=== PATIENT | female | born 2000 | race Caucasian/White ===

== ENCOUNTER 2023-05-28 22:32 | Emergency (ER) | payer OTHER, SELFPAY ==
[2023-05-28 22:33] VITALS: BMI 20.7
[2023-05-28 22:43] VITALS: BP 133/88
[2023-05-28 23:00] LABS: % Eosinophils 1.7 % (0-6); % Immature Granulocytes 0.3 % (0-0.5); % Lymphocytes 37.1 % (20.5-51.1); % Monocytes 10.6 % (1.7-9.3); % Neutrophils 49.3 % (42.2-75.2); Absolute Basophils 0.1 10^3/uL (0-0.2); Absolute Eosinophils 0.1 10^3/uL (0-0.7); Absolute Lymphocytes 2.2 10^3/uL (1.2-3.4); Absolute Monocytes 0.6 10^3/uL (0.1-0.6); Absolute Neutrophils 2.9 10^3/uL (1.4-6.5); Hematocrit 37.5 % (37.0-47.0); Hemoglobin 13.2 g/dL (12.0-16.0); Mean Corp Hgb Conc. 35.2 g/dL (33.0-37.0); Mean Corpuscular Hgb 31.7 pg (27.0-31.0); Mean Corpuscular Volume 89.9 fL (81.0-99.0); Mean Platelet Volume 8.8 fL (7.4-10.4); Nucleated Red Blood Cells % 0 %; Platelet Count 232 10^3/uL (130-400); Red Blood Cell Count 4.17 10^6/uL (4.20-5.40); Red Cell Dist. Width 11.8 % (11.5-14.5)
[2023-05-28 23:12] LABS: ALT (SGPT) 13 U/L (0-35); AST (SGOT) 22 U/L (14-36); Albumin 4.4 g/dl (3.5-5.0); Alkaline Phosphatase 75 U/L (38-126); Blood Urea Nitrogen 16 mg/dl (7-17); Calcium 9.5 mg/dl (8.4-10.2); Carbon Dioxide 27 mmol/L (22-30); Chloride 104 mmol/L (98-107); Glucose 106 mg/dl (70-99); Potassium 3.9 mmol/L (3.5-5.1); Sodium 136 mmol/L (135-145); Total Bilirubin 0.4 mg/dl (0.2-1.3); Total Protein 7.6 g/dl (6.3-8.2); eGFR > 60.00
[2023-05-29 01:41] VITALS: BP 109/76
[2023-05-29 02:00] VITALS: BP 104/71
[2023-05-29 02:55] LABS: Acetaminophen < 10 ug/ml (10-30); Salicylate < 1.0 mg/dl (2.0-20.0)
[2023-05-29 03:06] LABS: Alcohol None Detected
[2023-05-29 03:15] LABS: HCG, Serum Qualitative Screen Negative
--- NOTE | 2023-05-29 03:41 | ED.GENMED ---
History of Present Illness
General
Chief Complaint: Overdose Unintentional
Source: patient
Exam Limitations: none
Time Seen by Provider: 05/29/23 02:09
Nursing documentation reviewed up to this point in time: agreed with
Travel History
Have you had any contact with someone who has COVID-19?: No
Do you have any symptoms of coronavirus? Fever > 100 degrees, chills, cough, shortness of breath, sore throat, loss of taste or smell, muscle aches, or headache?: No
History of Present Illness
History of Present Illness:
This is a 23-year-old woman who has history of anxiety, follows with a counselor weekly but has not required medication. She denies history of depression, no previous treatment for depression.
Tonight she admits to swallowing 2 small handfuls of ibuprofen in an attempt to then quickly regurgitate the pills. Unfortunately she was unable to vomit up the pills and became concerned that she potentially overdosed on ibuprofen. She continues
to adamantly deny wanting to hurt herself, denies suicide attempt. She does admit that, now in retrospect, her actions were quite foolish and she has no history of similar episodes in the past.
She remains asymptomatic, denies abdominal pain, denies nausea.
She does admit to feeling somewhat [place] but [place] recently [place] to this area, she currently has a great job which she enjoys.
She denies alcohol nor drug use.
She denies risk of .
She lives at home alone with her dog but has brought with her a friend who has been supportive and patient states she has been happily reacquainted with old friends more recently.
She denies significant stress and continues to deny feelings of depression, denies suicidal thoughts or plan.
Past History
Past History
ED Past Medical History: Psychiatric (Anxiety)
ED Past Surgical History: None
Social History
Tobacco: Non-smoker
Alcohol: Occasional
Drug: None
Personal: Single
Living: alone
Employment: Employed
Family History
Family History: Other (Noncontributory)
Phy Exam
Physical Exam
Physical Exam:
GENERAL: 23-year-old female appears her stated age, bright and alert, easily communicative, appears in no acute distress. Male friend is accompanying.
EYE: pupils equal and reactive. anicteric
NECK: Supple, nontender, no meningismus, no significant adenopathy.
ENT: posterior pharynx is clear, oral mucosa is moist. No rhinorrhea.
CARDIAC: Regular rate and rhythm. no murmur.
LUNGS: Clear breath sounds bilaterally, no acute respiratory distress, no wheezes/rales/rhonchi
ABDOMEN: Soft, nondistended, without focal tenderness, no r/g, normoactive BS.
NEUROLOGICAL: Alert and oriented x3, no focal neuro deficits. Gait is tuttle and steady.
SKIN: Warm and dry, normal color, skin intact. No rash.
MUSCULOSKELETAL: No C/C/E. peripheral pulses are full and equal b/l. No palpable tenderness.
PSYCH: Normal and appropriate interaction. Admits to impulsive act tonight but continues to adamantly denies suicidal intent, denies intent to harm. Speech is fluent, normal thought processes. She is goal oriented. Fair insight. Momentary poor
judgment.
Course
Orders/Labs/Results
Orders:
Orders
05/28/23 22:53
Acetaminophen Urgent
Alcohol Urgent
CMP [Comprehensive Metabolic Panel] Urgent
Complete Blood Count/With Diff Urgent
HCG, Serum Qualitative Screen Urgent
Salicylate Urgent
05/29/23 02:04
Add On- LAB Urgent
Tests Added?: acetaminophen, salycilate, ETOH, HCG qual serum
05/29/23 02:05
Crisis Consult Urgent
Reason for Consult: intentional OD ibuprofen
05/29/23 03:25
Urine Drug Abuse Screen Urgent
Date Specimen was Collected: 05/29/23
Time Specimen was Collected: 03:22
Abnormal Lab Results
05/28/23
22:53
RBC 4.17 L 10^6/uL
(4.20-5.40)
MCH 31.7 H pg
(27.0-31.0)
Monocytes % 10.6 H %
(1.7-9.3)
Glucose 106 H mg/dl
(70-99)
Salicylates < 1.0 L mg/dl
(2.0-20.0)
Acetaminophen < 10 L ug/ml
(10-30)
05/28/23 22:53
05/28/23 22:53
Vital Signs
Initial and Last Documented VS:
Initial Vital Signs
Temp Pulse Resp BP Pulse Ox
98.0 F 94 18 133/88 97
05/28/23 22:43 05/28/23 22:43 05/28/23 22:43 05/28/23 22:43 05/28/23 22:43
Last Documented Vital Signs
Temp Pulse Resp BP Pulse Ox
98.0 F 82 20 105/78 98
05/28/23 22:43 05/29/23 03:51 05/29/23 03:51 05/29/23 03:51 05/29/23 03:51
MDM/Problems Addressed
Differential Diagnosis Includes:
Patient admits to what sounds like an intentional overdose however denies wanting to hurt herself, denies suicide attempt. She did attempt to immediately regurgitate the pills but was unsuccessful in doing so.
Although denies feelings of depression, denies suicide attempt there is some concern for intentional overdose thus will consult crisis for evaluation.
Patient has a friend accompanying her who seems supportive and does not appear concerned with patient's current mental state.
Thus far labs are unremarkable. Will check salicylate, acetaminophen, EtOH. Patient denies other ingestions other than ibuprofen.
No evidence of toxidrome on exam but will check UDS for completeness sake.
*Pulse Oximetry
Patient hypoxic: no
*Charting Clerk Interpretation
Rate: normal
Interpretation: normal
Rhythm: sinus
*Critical Care Note
Total Time (30-74mins, 75-104mins- exclusive of procedures): Not Applicable
Update Note
Update Note:
Patient has been evaluated by Mathieu gibbons and there appears no indication for acute hospitalization.
Patient has been provided outpatient resource information.
It is reassuring that she has an established counselor whom she follows with weekly.
Salicylate, acetaminophen are negative. EtOH is negative.
She remains asymptomatic, continues to deny thoughts of harm, suicidal ideation.
Her friend who is accompanying is comfortable taking the patient home and patient has been recommended to follow-up promptly with her PCP and continue with weekly counseling.
ED Attending Note
-
Portions of this chart may have been created with voice recognition software.� Occasional wrong word or��sound alike� substitutions may have occurred due to the inherent limitations of voice recognition software.
Discharge Plan
Departure
Patient Disposition: Home (Routine Discharge)
Date of Disposition: 05/29/23
Time of Disposition: 03:42
Patient with high blood pressure during this ER visit?: No
Condition: Good
Discharge Problem:
Accidental ibuprofen overdose
Instructions: Accidental Overdose (DC)
Referrals:
Cyril Reid DO [Family Provider] - Call in 1-3 days for appt
Activity Restrictions/Additional Instructions:
Will continue with your weekly counseling.
Follow-up with your primary care physician for recheck.
Interventions
Interventions:
*Risk Screen - Suicide Last Done: 05/28/23 22:43
*General Assessment Last Done: 05/28/23 22:43
*Neglect/Abuse Screening Last Done: 05/28/23 22:43
ED- Fall Risk Assessment Last Done: 05/29/23 03:57
*ED COVID-19 Vaccine History Last Done: 05/29/23 03:57
*Nursing Disposition Last Done: 05/29/23 03:57
ED- Cardiac Assessment Last Done: 05/29/23 03:51
ED- Neurological Assessment Last Done: 05/29/23 03:51
ED-Psychological Assessment Last Done: 05/29/23 03:51
ED- Pulmonary Assessment Last Done: 05/29/23 03:51
Discharge Date and Time
Discharge Date/Time: 05/29/23 03:58
[2023-05-29 03:50] LABS: Amphetamines Negative (Negative); Barbiturates Negative (Negative); Benzodiazepines Negative (Negative); Buprenorphine Negative (Negative); Cocaine Negative (Negative); Marijuana Negative (Negative); Methadone Negative (Negative); Methamphetamines Negative (Negative); Opiates Negative (Negative); Phencyclidine Negative (Negative); Tricyclic Antidepressants Negative (Negative)
[2023-05-29 03:51] VITALS: BP 105/78
== END 2023-05-29 03:58 | disposition home or self-care (01) ==
LOC: EMR 22:32
PROVIDERS: Emergency Medicine; EMERGENCY PHYSICIAN Emergency Medicine; FAMILY PHYSICIAN Family Medicine
DX: T39.311A Poisoning by propionic acid derivatives, accidental (unintentional), initial encounter (principal)
CPT/HCPCS: 99283; 80053; 80143; 80179; 80306; 82077; 84703; 85025